=== PATIENT | male | born 1960 | race Caucasian/White ===

== ENCOUNTER 2017-01-12 16:31 | Emergency (ER) | payer OTHER ==
[2017-01-12 16:36] VITALS: BP 140/97; PULSE 95; TEMP 97.6; BMI 44.7
--- NOTE | 2017-01-12 17:19 | PDOC ---
History of Present Illness - General Chief Complaint: Back Pain Stated Complaint: BACK PAIN Time Seen by Provider: 01/12/17 17:12 History Source: Patient - History of Present Illness Timing/Duration: other (2 weeks ago) Associated Symptoms: denies: fever/chills, malaise, weakness Past History - Past Medical History Allergies/Adverse Reactions: Allergies Allergy/AdvReac Type Severity Reaction Status Date / Time No Known Allergies Allergy Verified 01/12/17 16:34 Home Medications: Ambulatory Orders Amlodipine Besylate [Norvasc] 5 mg PO DAILY #30 tablet 12/10/12 Cyclobenzaprine HCl [Flexeril 10 mg] 10 mg PO TID PRN #9 tablet 01/12/17 Ibuprofen [Motrin -] 800 mg PO Q6H #30 tablet 01/12/17 Tramadol HCl 50 mg PO Q6H #15 tablet MDD 200 mg 01/12/17 Anemia: No Asthma: No Cancer: Yes (thyroid) Cardiac Disorders: No HTN: Yes - Surgical History Appendectomy: Yes Cardiac Surgery: No Cholecystectomy: No Gastric Stapling: No - Psycho/Social/Smoking Cessation Hx Anxiety: No Suicidal Ideation: No Smoking Status: No Smoking History: Never smoked Have you smoked in the past 12 months: No Number of Cigarettes Smoked Daily: 0 Information on smoking cessation initiated: No Hx Alcohol Use: No Drug/Substance Use Hx: No Substance Use Type: None Review of Systems - Review of Systems Respiratory: Yes: Cough. No: Shortness of Breath Cardiac (ROS): No: Chest Pain, Palpitations *Physical Exam - Vital Signs Last Vital Signs Temp Pulse Resp BP Pulse Ox 97.6 F 95 H 18 140/97 100 01/12/17 16:34 01/12/17 16:34 01/12/17 16:34 01/12/17 16:34 01/12/17 16:34 Medical Decision Making - Medical Decision Making 01/12/17 17:13 56 yo M, morbidly obese, history of thyroid cancer, s/p XRT 2 years ago, w/ no e /o recurrence on US 10/03 and normal whole body MRI recently showing no evidence of recurrence as per pt, presenting with lower back pain. 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 No lower extremity weakness, bowel or bladder incontinence or saddle anesthesia. Taking [id number] medications with no relief. See exam LBP after heavy lifting M/l MSK No e/o cauda equina or infxn Does have hx of thyroid ca w/ normal whole body MRI recently per pt -pain control -XR given h/o malignancy 01/12/17 18:08 01/12/17 18:43 01/12/17 19:39 PXR read as neg for lytic lesion per radiology. Signs suggestive of ileus and constipation seen. Pt reports no abd pain or acute change in BM. Has normal BS and non-tender abd on exam in ED. Back pain since improved w/ meds. DC w/ rxs and f/u with PMD if pain continues. Reasons to return to ED d/w pt 01/12/17 20:13 *DC/Admit/Observation/Transfer Diagnosis at time of Disposition: Chronic back pain Qualifiers: Back pain location: low back pain Back pain laterality: right Sciatica presence : without sciatica Qualified Code(s): M54.5 - Low back pain - Discharge Dispostion Disposition: HOME Condition at time of disposition: Improved - Prescriptions Prescriptions: Cyclobenzaprine HCl [Flexeril 10 mg] 10 mg PO TID PRN #9 tablet PRN Reason: Back Pain Ibuprofen [Motrin -] 800 mg PO Q6H #30 tablet Tramadol HCl 50 mg PO Q6H #15 tablet MDD 200 mg - Patient Instructions Printed Discharge Instructions: Low Back Pain Additional Instructions: Take medications as directed and follow up with your PMD - Post Discharge Activity Work/School Note: Back to Work
[2017-01-12] MEDS ORDERED: traMADol HCL 50 MG TABLET PO ONE (17:22)
[2017-01-12] MEDS ORDERED: OXYCODONE/APAP 5/325MG COMBO TABLET PO ONE (17:53)
[2017-01-12] MEDS ORDERED: diazePAM 5 MG TABLET PO ONE (17:53)
[2017-01-12] MEDS ORDERED: KETOROLAC TROMETHAMINE 60 MG/2 ML VIAL ONE (17:53)
[2017-01-12] MEDS ORDERED: KETOROLAC TROMETHAMINE 60 MG/2 ML VIAL IM ONE (17:53)
[2017-01-12] MEDS ORDERED: OXYCODONE/APAP 5/325MG COMBO TABLET ONE (17:54)
[2017-01-12] MEDS ORDERED: diazePAM 5 MG TABLET ONE (17:54)
== END 2017-01-12 19:44 | disposition home or self-care (01) ==
LOC: JER 16:31 → JERFT 16:31
PROC: 3E0233Z Introduction of Anti-inflammatory into Muscle, Percutaneous Approach (ICD-10-PCS; principal; 2017-01-12)
DX: M54.5 Low back pain (principal); G89.29 Other chronic pain; X50.0XXA Overexertion from strenuous movement or load, initial encounter; X50.9XXA Other and unspecified overexertion or strenuous movements or postures, initial encounter; Y93.89 Activity, other specified; Y92.89 Other specified places as the place of occurrence of the external cause; Y99.0 Civilian activity done for income or pay
CPT/HCPCS: 72100-TC; 99281-25

== ENCOUNTER 2023-05-11 23:12 | Inpatient (IN) | payer OTHER ==
[2023-05-12] MEDS ORDERED: FAMOTIDINE 20 MG/50 ML IVPB 20 MG/50 ML MG IVPB ONE ×2 (01:59→02:52)
[2023-05-12] MEDS ORDERED: SODIUM CHLORIDE 0.9% 500 ML INFUS.BAG IV ONE (01:59)
[2023-05-12] MEDS ORDERED: ONDANSETRON 4 MG/2 ML VIAL IVPUSH ONE (01:59)
[2023-05-12] MEDS ORDERED: ONDANSETRON 4 MG/2 ML VIAL ONE (02:51)
[2023-05-12 03:37] LABS: POTASSIUM 4.1 mmol/L (3.5-5.1)
[2023-05-12 03:38] LABS: HEMATOCRIT 43.2 % (35.4-49); HEMOGLOBIN 14.4 GM/dL (11.7-16.9); MCH 27.3 pg (25.7-33.7); MCHC 33.5 g/dl (32.0-35.9); MEAN CELL VOLUME 81.7 fl (80-96); MEAN PLT VOLUME 8.8 fl (7.5-11.1); PLATELET COUNT 187 10^3/uL (134-434); RBC 5.28 M/mm3 (4.00-5.60); RDW 13.5 % (11.9-15.9); WHITE BLOOD COUNT 10.1 K/mm3 (4.0-10.0)
[2023-05-12 03:39] LABS: ALBUMIN 3.6 g/dl (3.4-5.0); BLOOD UREA NITROGEN 10.8 mg/dL (7-18); CALCIUM 9.1 mg/dL (8.5-10.1); MAGNESIUM 1.9 mg/dL (1.8-2.4)
[2023-05-12 03:42] LABS: CREATININE 0.9 mg/dL (0.55-1.3)
[2023-05-12 03:44] LABS: BILIRUBIN,TOTAL 0.6 mg/dL (0.2-1)
[2023-05-12] MEDS ORDERED: LACTATED RINGERS SOLUTION 1000 ML INFUS.BAG IV ONE (04:27)
[2023-05-12 04:49] LABS: ANISOCYTOSIS 2+; MACROCYTOSIS 0
[2023-05-12] MEDS ORDERED: morphine CARPU-JECT 4 MG/1 ML DISP.SYRIN IVPUSH ONE (06:25)
[2023-05-12] MEDS ORDERED: morphine SULFATE 4 MG/ML VIAL ONE (06:44)
[2023-05-12] MEDS ORDERED: ACETAMINOPHEN 325 MG TABLET (FP) PO PRN (07:24)
[2023-05-12] MEDS ORDERED: KETOROLAC TROMETHAMINE 15 MG/ML VIAL IM PRN (07:25)
[2023-05-12] MEDS ORDERED: LACTATED RINGERS SOLUTION 1,000 ML/1,000 ML INFUS.BAG IV SCH (07:30)
[2023-05-12] MEDS ORDERED: ONDANSETRON *ODT* 4 MG TABLET SL PRN (07:31)
[2023-05-12] MEDS ORDERED: LEVOTHYROXINE NA 75 MCG TABLET (FP) ONE (08:48)
[2023-05-12] MEDS: LEVOTHYROXINE 75 MCG, LEVOTHYROXINE 100 MCG PO SCH (09:14)
[2023-05-12 09:52] VITALS: BMI 43.7
[2023-05-12] MEDS ORDERED: LEVOTHYROXINE NA 150 MCG TABLET PO SCH (10:00)
[2023-05-12] MEDS ORDERED: ENOXAPARIN NA (PORCINE) 40 MG/0.4 ML DISP.SYRIN SQ SCH (10:00)
[2023-05-12] MEDS: KETOROLAC TROMETHAMINE 15 MG/ML VIAL IVPUSH PRN ×2 (10:28→16:54)
[2023-05-12] MEDS: LACTATED RINGERS SOLUTION 1,000 ML/1,000 ML INFUS.BAG IV SCH ×3 (10:30→18:45)
[2023-05-12] MEDS: ENOXAPARIN NA (PORCINE) 40 MG/0.4 ML DISP.SYRIN SQ SCH ×2 (10:30→21:43)
[2023-05-12] MEDS: amLODIPine BESYLATE 5 MG TABLET (FP) PO SCH (10:31)
[2023-05-12] MEDS: INSULIN SLIDING SCALE (NOVOLOG) 1 VIAL SQ SCH ×2 (11:34→16:57)
[2023-05-12] MEDS: ENALAPRIL MALEATE 5 MG TABLET PO SCH (14:17)
[2023-05-12] MEDS: ATORVASTATIN CA 40 MG TABLET (FP) PO SCH (21:44)
[2023-05-13] MEDS: LEVOTHYROXINE 75 MCG, LEVOTHYROXINE 100 MCG PO SCH (08:52)
[2023-05-13] MEDS: INSULIN SLIDING SCALE (NOVOLOG) 1 VIAL SQ SCH ×3 (08:52→17:26)
[2023-05-13 08:53] LABS: HEMATOCRIT 37.8 % (35.4-49); HEMOGLOBIN 12.6 GM/dL (11.7-16.9); MCH 27.6 pg (25.7-33.7); MCHC 33.2 g/dl (32.0-35.9); MEAN PLT VOLUME 9.2 fl (7.5-11.1); PLATELET COUNT 148 10^3/uL (134-434); RBC 4.55 M/mm3 (4.00-5.60); RDW 13.4 % (11.9-15.9); WHITE BLOOD COUNT 8.7 K/mm3 (4.0-10.0)
[2023-05-13 09:14] LABS: POTASSIUM 3.6 mmol/L (3.5-5.1)
[2023-05-13 09:21] LABS: CALCIUM 8.3 mg/dL (8.5-10.1); PHOSPHOROUS 2.3 mg/dL (2.5-4.9)
[2023-05-13 09:22] LABS: MAGNESIUM 1.9 mg/dL (1.8-2.4)
[2023-05-13 09:23] LABS: CHOLESTEROL 102 mg/dL (50-200); CREATININE 0.7 mg/dL (0.55-1.3)
[2023-05-13 09:25] LABS: LDL CHOLESTEROL (ONLY SJRH) 57 mg/dL (5-100)
[2023-05-13 09:26] LABS: BILIRUBIN,TOTAL 0.8 mg/dL (0.2-1); HDL CHOLESTEROL 43 mg/dL (40-60)
[2023-05-13] MEDS: LACTATED RINGERS SOLUTION 1,000 ML/1,000 ML INFUS.BAG IV SCH ×2 (09:58→14:31)
[2023-05-13] MEDS: amLODIPine BESYLATE 5 MG TABLET (FP) PO SCH (09:59)
[2023-05-13] MEDS: ENALAPRIL MALEATE 5 MG TABLET PO SCH (09:59)
[2023-05-13] MEDS: ENOXAPARIN NA (PORCINE) 40 MG/0.4 ML DISP.SYRIN SQ SCH ×2 (09:59→22:17)
[2023-05-13] MEDS: NAPH,MB-DB/K PH,MBDB POWDER PACKET PO SCH ×2 (14:31→22:17)
[2023-05-13 21:38] VITALS: RESP 20
[2023-05-13] MEDS: ATORVASTATIN CA 40 MG TABLET (FP) PO SCH (22:17)
[2023-05-14] MEDS: LACTATED RINGERS SOLUTION 1,000 ML/1,000 ML INFUS.BAG IV SCH ×2 (06:13→22:19)
[2023-05-14] MEDS: INSULIN SLIDING SCALE (NOVOLOG) 1 VIAL SQ SCH ×3 (06:17→17:51)
[2023-05-14] MEDS: NAPH,MB-DB/K PH,MBDB POWDER PACKET PO SCH (06:17)
[2023-05-14] MEDS: LEVOTHYROXINE 75 MCG, LEVOTHYROXINE 100 MCG PO SCH (06:17)
[2023-05-14 08:26] LABS: BASO % 0.3 % (0-2.0); HEMATOCRIT 35.8 % (35.4-49); HEMOGLOBIN 12.4 GM/dL (11.7-16.9); LYMPH % 8.4 % (8-40); MCH 28.3 pg (25.7-33.7); MCHC 34.7 g/dl (32.0-35.9); MEAN CELL VOLUME 81.7 fl (80-96); MONO % 7.6 % (3.8-10.2); NEUT % 81.7 % (42.8-82.8); PLATELET COUNT 142 10^3/uL (134-434); RBC 4.39 M/mm3 (4.00-5.60); WHITE BLOOD COUNT 9.6 K/mm3 (4.0-10.0)
[2023-05-14 08:44] LABS: POTASSIUM 3.6 mmol/L (3.5-5.1)
[2023-05-14 08:57] LABS: CALCIUM 8.5 mg/dL (8.5-10.1)
[2023-05-14 08:58] LABS: ALBUMIN 2.8 g/dl (3.4-5.0); BLOOD UREA NITROGEN 6.5 mg/dL (7-18)
[2023-05-14 09:01] LABS: CREATININE 0.7 mg/dL (0.55-1.3)
[2023-05-14 09:02] LABS: BILIRUBIN,TOTAL 0.8 mg/dL (0.2-1)
[2023-05-14] MEDS: ENALAPRIL MALEATE 5 MG TABLET PO SCH (09:38)
[2023-05-14] MEDS: ENOXAPARIN NA (PORCINE) 40 MG/0.4 ML DISP.SYRIN SQ SCH ×2 (09:39→22:18)
[2023-05-14] MEDS: amLODIPine BESYLATE 5 MG TABLET (FP) PO SCH (09:40)
[2023-05-14] MEDS: ATORVASTATIN CA 40 MG TABLET (FP) PO SCH (22:17)
[2023-05-14] MEDS ORDERED: guaiFENesin/D-METHORPHAN HB 10 ML UNIT-DOSE CUPS PO ONE (22:40)
[2023-05-15 06:12] VITALS: BP 139/64; TEMP 99.8
[2023-05-15] MEDS: LEVOTHYROXINE 75 MCG, LEVOTHYROXINE 100 MCG PO SCH (07:21)
[2023-05-15] MEDS: INSULIN SLIDING SCALE (NOVOLOG) 1 VIAL SQ SCH (07:29)
[2023-05-15 10:15] LABS: BASO % 0.2 % (0-2.0); HEMATOCRIT 37.1 % (35.4-49); HEMOGLOBIN 12.4 GM/dL (11.7-16.9); MCH 27.7 pg (25.7-33.7); MCHC 33.3 g/dl (32.0-35.9); MEAN CELL VOLUME 83.1 fl (80-96); MEAN PLT VOLUME 9.1 fl (7.5-11.1); MONO % 5.9 % (3.8-10.2); NEUT % 82.9 % (42.8-82.8); PLATELET COUNT 164 10^3/uL (134-434); RBC 4.47 M/mm3 (4.00-5.60); RDW 13.4 % (11.9-15.9); WHITE BLOOD COUNT 10.2 K/mm3 (4.0-10.0)
[2023-05-15 10:30] LABS: POTASSIUM 3.6 mmol/L (3.5-5.1)
[2023-05-15 10:41] VITALS: PULSE 117
[2023-05-15] MEDS: ENALAPRIL MALEATE 5 MG TABLET PO SCH (10:47)
[2023-05-15] MEDS: amLODIPine BESYLATE 5 MG TABLET (FP) PO SCH (10:47)
[2023-05-15] MEDS: ENOXAPARIN NA (PORCINE) 40 MG/0.4 ML DISP.SYRIN SQ SCH (10:47)
[2023-05-15] MEDS: LACTATED RINGERS SOLUTION 1,000 ML/1,000 ML INFUS.BAG IV SCH (10:48)
[2023-05-15 10:59] LABS: ALBUMIN 2.9 g/dl (3.4-5.0); BLOOD UREA NITROGEN 7.6 mg/dL (7-18); CALCIUM 8.6 mg/dL (8.5-10.1); MAGNESIUM 2.1 mg/dL (1.8-2.4)
[2023-05-15 11:02] LABS: CREATININE 0.8 mg/dL (0.55-1.3)
[2023-05-15 11:04] LABS: BILIRUBIN,TOTAL 0.7 mg/dL (0.2-1); TOT PROT 6.3 g/dl (6.4-8.2)
[2023-05-15] MEDS ORDERED: AMOX TR/POT CLAV 875MG/125MG TABLETS (FP) PO SCH (17:30)
== END 2023-05-15 11:42 | disposition home or self-care (01) | DRG 439 ==
LOC: JER 23:12 → JERBED 05-12 06:27 → OBSVTOIN 05-12 07:28 → J8W 05-12 09:32
PROVIDERS: ADMIT Internal Medicine; ATTEND Nurse Practitioner Acute Care
DX: K85.90 Acute pancreatitis without necrosis or infection, unspecified (principal); Z68.41 Body mass index [BMI] 40.0-44.9, adult; E66.01 Morbid (severe) obesity due to excess calories; E03.9 Hypothyroidism, unspecified; E78.5 Hyperlipidemia, unspecified; I10 Essential (primary) hypertension; R11.2 Nausea with vomiting, unspecified; G47.33 Obstructive sleep apnea (adult) (pediatric)
CPT/HCPCS: 0241U-QW; 36415; 71045-TC-FY; 74177-TC; 76705-TC; 80053; 80061; 82962; 83036; 83690; 83735; 84100; 84478; 84484; 85025; 85027; 93005; 93010; 93306-TC; 94761; 99285-25; G0378; Q9967